=== PATIENT | male | born 1965 | race Caucasian/White ===

== ENCOUNTER 2017-03-06 08:20 | Inpatient (IN) ==
[2017-03-06] MEDS ORDERED: ZOFRAN IV PRN (10:15)
[2017-03-06] MEDS ORDERED: TYLENOL PO PRN (10:15)
[2017-03-06] MEDS ORDERED: MORPHINE IV PRN (10:15)
[2017-03-06] MEDS ORDERED: VANCOMYCIN IV PER PHARMACY MISC SCH (10:15)
[2017-03-06 10:56] LABS: MANUAL DIFF NEEDED? NO
[2017-03-06 10:59] LABS: BASO% 0.2 % (0.0-0.8); EOS# 0.07 X1000 (0.0-0.7); EOS% 0.6 % (0.0-10.0); HEMATOCRIT 41.7 % (42.0-52.0); HEMOGLOBIN 14.5 g/dL (14.0-18.0); IMM GRAN# 0.02 X1000 (0.0-0.04); IMM GRAN% 0.2 % (0.0-0.5); LYMPH# 1.52 X1000 (1.2-3.4); MCH 30.7 PG (27-31); MCHC 34.8 g/dL (33-37); MCV 88.3 FL (81-99); MONO# 1.03 X1000 (0.11-0.59); MONO% 8.1 % (1.7-9.3); MPV 9.3 FL (7.4-10.4); NEUT% 78.9 % (42.2-75.2); PLT 191 X1000 (130-400); RBC 4.72 XMIL (4.7-6.1)
--- NOTE | 2017-03-06 11:03 | HISTORY AND PHYSICAL ---
PRIMARY CARE PHYSICIAN: Dakota Lomeli MD CHIEF COMPLAINT: Left lower lip swelling/facial pain. HISTORY OF PRESENT ILLNESS: This is a 51-year-old white male with a past medical history significant for an incomplete right bundle-branch block, allergic rhinitis, mild anxiety, reflux disease, hypertension, nonalcoholic fatty liver disease, impaired fasting glucose, low HDL, mild obesity, and paroxysmal supraventricular tachycardia who presents for evaluation of the above- mentioned symptoms. The current history of present illness began 2 days ago. At that time, the patient states he awoke with a pustule inferior to the left lower lip and with modest lip swelling. He manually released the purulent contents with pressure. Throughout the day, the patient states he did reasonably well. He did note some pain, although this was nonlimiting. Yesterday, he awoke with another pustule adjacent to his previous. Once again, with pressure, he released the contents. Purulence was also identified at this time. Throughout the day yesterday, the symptoms increased. The patient noted increasing swelling of the left lower lip as well as significant pain. The patient was noted to have low-grade fevers. Otherwise, no systemic symptoms were identified. The patient was seen in the clinic yesterday evening. Temperature at that time was 100.1. White blood cell count was noted to be slightly elevated at 12.7. We discussed this in detail. I offered inpatient evaluation at that time. He deferred. The patient was started on Augmentin and doxycycline therapy. I was contacted this morning secondary to persistence and progression of his illness. Over the course of the last 12 hours, the patient has developed increasing pain. The lower lip swelling has progressed to include the right lower lip. He also noted increasing swelling and pain in the submandibular and anterior neck region and anterior cervical region. The patient has continued to have low-grade fevers. Otherwise, he continues to deny additional systemic symptoms. He has no neurological deficits associated. Because of the refractory nature of his symptoms despite antibiotic intervention, the patient will be admitted to the hospital for full evaluation and management. Of note, the patient denies nausea, vomiting, shortness of breath, chest pain, cough, congestion, abdominal symptoms, urinary symptoms, and changes in bowel movements. PAST MEDICAL HISTORY: 1. Abnormal electrocardiogram with an incomplete right bundle-branch block. 2. Allergic rhinitis. 3. Anxiety, primarily secondary to a fear of heights. 4. Cholelithiasis, status post laparoscopic cholecystectomy in 2001. 5. Reflux disease. 6. Hypertension. 7. Nonalcoholic fatty liver disease. 8. Impaired fasting glucose. 9. Low HDL. 10. Obstructive sleep apnea, treated with weight loss and positional management. 11. Overweight. 12. Paroxysmal supraventricular tachycardia diagnosed in 2012. CURRENT MEDICATIONS: 1. Amlodipine 2.5 mg at bedtime. 2. Cyclobenzaprine 10 mg 1/2 to 1 tablet 3 times daily as needed. 3. Dexilant 60 mg daily. 4. Losartan 100 mg daily. 5. Meloxicam 15 mg daily as needed. 6. Nasacort as needed. 7. Xanax 0.25 mg every 6 hours as needed. 8. Zantac 75 mg twice daily as needed. 9. Ziac 10/6.25 daily. 10. Zyrtec as needed. ALLERGIES: The patient answered no known drug allergies. SOCIAL HISTORY: The patient is a former smoker, having smoked 5 cigarettes per day and/or used oral tobacco for 25 to 30 years. He stopped in 2008. He rarely uses alcohol. He denies illicit drug use. 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 He enjoys fishing, softball, and screen printing. He does not exercise routinely. FAMILY HISTORY: The patient's father is 71 years old with a history of hypertension and diabetes. He has no information on his mother. There is a history of hypertension and Hodgkin lymphoma in a sibling. REVIEW OF SYSTEMS: A 12-point review of systems was performed. The pertinent positives and negatives are noted in the History of Present Illness. PHYSICAL EXAMINATION: VITAL SIGNS: Temperature 99.6 degrees, heart rate 82, respirations 16, blood pressure is 145/88. GENERAL: Well nourished, well developed, no acute distress. HEENT: Normocephalic, atraumatic. Pupils equal, round, react to light. Extraocular muscles intact. Sclerae anicteric. [place] conjunctivae. Left lower lip with significant induration. I do not appreciate any fluctuance, pain to palpation. Inferior to the lip is a crusted pustule without drainage. Again, pain to palpation, but no purulence. NECK: Supple. Fullness in the left submandibular region without fluctuance, possible enlarged lymph node in this area as well as the left anterior cervical. No thyromegaly. No bruits auscultated. CARDIOVASCULAR: Regular rate and rhythm. No significant murmurs, rubs, or gallops. PULMONARY: Clear to auscultation bilaterally. ABDOMEN: Soft, nontender, nondistended. Positive bowel sounds. EXTREMITIES: Moves all extremities well. No significant clubbing, cyanosis, or edema. NEUROLOGIC: Cranial nerves 2 through 12 grossly intact. Motor and sensory grossly intact. PSYCHOLOGIC: Examination is appropriate. LABORATORY DATA: Pending at the time of admission. RADIOLOGIC DATA: CT scan of the facial soft tissue and soft tissue of the neck is pending. ASSESSMENT AND PLAN: A 51-year-old white male with a past medical history as noted who presents for evaluation of refractory left lower lip cellulitis. This likely began as a folliculitis inferior to the left lip, but significant progression has occurred. I cannot fully rule out a tracking abscess. Because of the refractory nature of his symptoms despite Augmentin and doxycycline therapy, we will admit the patient to the hospital for intravenous antibiotics and further evaluation. 1. Admit to General Medicine. 2. Refractory facial cellulitis: As above, we will need to rule out underlying abscess. We will check blood cultures x2. We will start the patient on broad-spectrum antibiotics including vancomycin and Zosyn therapy. We will check a CT scan of the soft tissue of the face and neck. We will determine if a surgical consultation is appropriate. 3. Fever: This likely is secondary to the above. Blood cultures will be drawn. We will start the patient on broad-spectrum antibiotics as noted. 4. Hypertension: We will continue the patient on his home regimen with the exception of holding Ziac. We will follow this closely. 5. Impaired fasting glucose: We will remain aware. We will follow blood sugars while hospitalized. 6. History of paroxysmal supraventricular tachycardia: We will monitor the patient with telemetry. This will also be followed. 7. Fluid, electrolytes, nutrition: We will monitor electrolytes, normal saline at 75 mL an hour, nothing by mouth for now. 8. Prophylaxis: The patient will be placed on sequential compression devices. Should surgical intervention be ruled out, we will plan to initiate Lovenox. cc: Dakota Lomeli MD
[2017-03-06 11:10] LABS: INR 1.04
[2017-03-06 11:21] LABS: AGAP 10; ALKALINE PHOSPHATASE 70 U/L (32-122); BUN 16 mg/dL (8-22); CALCIUM 9.4 mg/dL (8.8-10.2); CHLORIDE 97 mmol/L (98-107); COSMO 276; GOT 15 U/L (10-34); GPT 32 U/L (10-44); POTASSIUM 4.2 mmol/L (3.5-5.1); SODIUM 136 mmol/L (136-145); TCO2 29 mmol/L (25-35); TOTAL PROTEIN 7.4 g/dL (6.3-8.3)
[2017-03-06] MEDS: ZOSYN 3.375 GM/NS 3.375 GM/50 ML IVPB IV SCH ×3 (11:28→22:43)
[2017-03-06] MEDS: NS 1,000 ML IV SCH (11:30)
--- NOTE | 2017-03-06 12:30 | Diag Imaging Result Doc PS360 ---
EXAM: FACIAL BONES W/CONTRAST HISTORY: Facial cellulitis, rule out abscess TECHNIQUE: CT of the facial bones with intravenous contrast and thin slices at 0.75 mm COMMENT: There is slight soft tissue swelling over the right scalp which may be due to chronic congenital subgaleal lipoma. There is apparent thickening of the platysma on the left. Subcutaneous soft tissue stranding is present in the left submandibular region. There is skin thickening as well. There are number of prominent nodes in both submandibular regions but particularly around axial image 408 where there is a node on the left measuring over 16 mm in diameter. The left submandibular gland is somewhat hypoechoic dense in appearance with poorly defined margins. The epiglottis is not enlarged. The parotid glands are symmetrical in appearance and there is no evidence of parapharyngeal fluid collection. There is considerable beam hardening artifact from dental work. No definite bony erosions are present. There is no evidence of acute paranasal sinus disease. IMPRESSION: Nonfocal inflammatory changes in the subcutaneous fat, skin and around the platysma on the left. Left submandibular adenopathy/adenitis. Electronically signed by Myles Srinivasan 03/06/2017 12:27 PM
--- NOTE | 2017-03-06 12:31 | Diag Imaging Result Doc PS360 ---
EXAM: NECK W/CONTRAST HISTORY: Facial cellullits/pharyngitis, rule out abscess TECHNIQUE: CT of the neck with intravenous contrast COMMENT: The findings on the study are similar to those seen on the facial bone CT. There is no appreciable adenopathy below the level of the previous study. The lung apices are unremarkable in appearance and the visualized portion of the mediastinum is unremarkable. The larynx is within normal limits. IMPRESSION: Soft tissue inflammatory changes in the left submandibular region as previously described. Submandibular adenopathy on the left. Electronically signed by Myles Srinivasan 03/06/2017 12:29 PM
[2017-03-06] MEDS: VANCOMYCIN 1,800 MG in NS 250 ML IV SCH (16:09)
[2017-03-06] MEDS: NORCO-7.5 PO PRN (17:04)
[2017-03-07] MEDS: VANCOMYCIN 1,800 MG in NS 250 ML IV SCH ×2 (03:00→13:27)
[2017-03-07] MEDS: ZOSYN 3.375 GM/NS 3.375 GM/50 ML IVPB IV SCH ×4 (05:19→21:16)
[2017-03-07] MEDS: NS 1,000 ML IV SCH (05:19)
[2017-03-07] MEDS: NORCO-7.5 PO PRN ×3 (08:32→18:22)
[2017-03-07] MEDS: COZAAR PO SCH (08:34)
[2017-03-07] MEDS ORDERED: NORVASC PO SCH ×2 (09:00→21:00)
--- NOTE | 2017-03-07 10:41 | PROGRESS NOTE ---
DATE: 03/07/2017 SUBJECTIVE: This morning, patient states his condition is largely unchanged. He has noted a slight decrease in swelling in his right lower lip and his submandibular region. He denies fevers, chills, nausea, vomiting, shortness of breath overnight. Dr. John was consulted yesterday. He did not feel surgical intervention was warranted. OBJECTIVE: Vital Signs: T-max 98.8 degrees, heart rate 63-78, respirations 14-20, blood pressure 127-145/63-73. General: Well nourished, well developed, no acute distress. Cardiovascular: Regular rate and rhythm. No significant murmurs, rubs, or gallops. Pulmonary: Clear to auscultation bilaterally. Abdomen: Soft, nontender, nondistended. Positive bowel sounds. Extremities: Moves all extremities well. No significant clubbing, cyanosis, or edema. Dermatologic Evaluation: Patient has persistent left lower lip induration with an ulceration inside the lip with purulent drainage. Lymphatics: The left anterior cervical lymph nodes are not tender, but decreasing in size. Laboratory Data: None. ASSESSMENT AND PLAN: 1. Refractory facial cellulitis-CT scan yesterday confirmed significant swelling, but no definitive abscess. Consultation by Dr. John suggested no need for urgent surgical intervention. We will continue broad-spectrum antibiotics in the form of vancomycin and Zosyn therapy. Once his condition has stabilized and begins to improve, we will consider transitioning to oral antibiotics. 2. Fever-patient has achieved improvement. We will continue antibiotics as noted. 3. Hypertension-the patient's blood pressure is reasonably controlled on his current regimen. We will continue to hold Ziac therapy. We will plan to resume this in the morning. 4. Impaired fasting glucose-patient's blood sugar was noted to be modestly elevated upon admission. We will remain aware. 5. Paroxysmal supraventricular tachycardia-we will continue to follow patient on telemetry. 6. Disposition-at this point, patient continues to require penitentiary care in a hospital setting. We will plan discharge home once appropriate. cc: Dakota Lomeli MD
[2017-03-08] MEDS: VANCOMYCIN 1,800 MG in NS 250 ML IV SCH ×2 (02:59→15:44)
[2017-03-08] MEDS: ZOSYN 3.375 GM/NS 3.375 GM/50 ML IVPB IV SCH ×3 (05:15→18:18)
[2017-03-08 07:15] LABS: MANUAL DIFF NEEDED? NO
[2017-03-08 07:22] LABS: BASO% 0.4 % (0.0-0.8); EOS# 0.26 X1000 (0.0-0.7); HEMATOCRIT 38.2 % (42.0-52.0); HEMOGLOBIN 13.1 g/dL (14.0-18.0); LYMPH# 1.47 X1000 (1.2-3.4); LYMPH% 28.2 % (20.5-51.1); MCH 30.8 PG (27-31); MCHC 34.3 g/dL (33-37); MCV 89.7 FL (81-99); MONO% 9.6 % (1.7-9.3); NEUT% 56.8 % (42.2-75.2); PLT 187 X1000 (130-400); RBC 4.26 XMIL (4.7-6.1)
[2017-03-08 07:38] LABS: AGAP 9; ALBUMIN 3.3 g/dL (3.5-5.0); ALKALINE PHOSPHATASE 60 U/L (32-122); BUN 12 mg/dL (8-22); CALCIUM 8.4 mg/dL (8.8-10.2); CHLORIDE 103 mmol/L (98-107); COSMO 287; GOT 18 U/L (10-34); GPT 31 U/L (10-44); SODIUM 143 mmol/L (136-145); TCO2 31 mmol/L (25-35); TOTAL BILIRUBIN 0.46 mg/dL (0.20-1.00); TOTAL PROTEIN 6.5 g/dL (6.3-8.3)
[2017-03-08] MEDS: COZAAR PO SCH (09:23)
[2017-03-08 14:29] VITALS: BP 116/62
--- NOTE | 2017-03-09 05:11 | DISCHARGE SUMMARY ---
ADMISSION DATE: 03/06/2017 DISCHARGE DATE: 03/08/2017 ADMISSION DIAGNOSES: 1. Left lower lip swelling. 2. Facial pain. DISCHARGE DIAGNOSES: 1. Refractory facial cellulitis. 2. Fever, resolved. 3. Hypertension, present on arrival. 4. Impaired fasting glucose present on arrival. 5. Paroxysmal supraventricular tachycardia, present on arrival CONSULTATIONS: None. PROCEDURES: A CT scan of the facial bones was performed on 03/06/2017 which revealed nonfocal inflammatory changes in the subcutaneous fat, skin, and around the platysma on the left with left submandibular adenopathy and adenitis. CT scan of the neck was performed on 03/06/2017 which revealed soft tissue inflammatory changes in the left submandibular region as previously described. Submandibular adenopathy on the left. HISTORY AND PHYSICAL EXAMINATION: See admit note. PHYSICAL EXAMINATION PRIOR TO DISCHARGE: Vital Signs: Temperature 98.1 degrees, heart rate 61, respirations 18, and blood pressure is 116/62. General: Well nourished, well developed in no acute distress. Cardiovascular: Regular rate and rhythm. No significant murmurs, rubs, or gallops. Pulmonary: Clear to auscultation bilaterally. Abdomen: Soft, nontender, and nondistended. Positive bowel sounds. Extremities: Moves all extremities well. No significant clubbing, cyanosis or edema. Neurologic: Evaluation revealed decreasing swelling to the left lower lip decreased, inferior lip and submandibular regions. LABORATORY DATA: Prior to discharge, white blood cell count 5.2, 2 hemoglobin 13.1, hematocrit 38.2, platelet count 187,000. Sodium 143, potassium 4.0, chloride 103, bicarb 31, BUN 12, creatinine 1.0 glucose 141, calcium 8.4, total bilirubin 0.46 total protein 6.5, albumin 3.3, alkaline phosphatase 60, AST 18, and ALT 31. HOSPITAL COURSE: Patient was admitted as per history and physical examination. Hospital course per condition is as follows. 1. Refractory facial cellulitis-unfortunately patient failed outpatient therapy. The patient was placed immediately on IV antibiotics in the form of Zosyn and vancomycin therapy. Blood cultures were drawn which remained negative to date. Dr. John was initially consult secondary to abnormalities of the CT scan. No surgical intervention was deemed warranted. While hospitalized, the patient was continued on IV antibiotic therapy. Patient achieved improvement while hospitalized. Patient will be discharged home with 9 additional days of Augmentin and doxycycline therapy. We will follow his clinical course as an outpatient. 2. Fevers-upon admission, patient was noted to have low-grade fevers. While hospitalized, his fevers resolved. We will follow this as an outpatient as well. 3. Hypertension-patient was continued on his home medications with the exception of holding diet while hospitalized. We will resume all of patient's home medications at discharge. 4. Impaired fasting glucose-patient's blood sugar remained slightly elevated. We discussed this in detail. We will encourage decreasing carbohydrates and sugars in his diet. 5. Paroxysmal supraventricular tachycardia-patient has longstanding disease. There was no evidence of arrhythmia while hospitalized. DISCHARGE CONDITION: Discharged to home. MEDICATIONS: 1. Acetaminophen 650 mg every 4 hours as needed. 2. Augmentin 875/125 1 tablet twice daily for the next 9 days. 3. Ziac 10/6.25 1 tablet daily. 4. Amlodipine 2.5 mg daily. 5. Losartan 100 mg daily. 6. Doxycycline 100 mg twice daily for 9 days. 7. [place] as needed. FOLLOWUP: Patient is follow with me in approximately 7-10 days. cc: Dakota Lomeli MD
== END 2017-03-08 19:37 | disposition home or self-care (01) ==
LOC: DIRADM 08:20 → 3N 09:52
PROVIDERS: ADMIT Internal Medicine; ATTEND Internal Medicine